=== PATIENT | female | born 1950 | race Caucasian/White ===

== ENCOUNTER 2022-02-16 07:53 | Outpatient (CLI) | payer MEDICARE, OTHER, SELFPAY | END 2022-02-16 07:54 | disposition home or self-care (01) | LOC: WOUND 07:54 | PROVIDERS: PCP Family Medicine; Visit Provider Nurse Practitioner Family | DX: L97.512 Non-pressure chronic ulcer of other part of right foot with fat layer exposed (principal) | CPT/HCPCS: 11042; 99213 ==

== ENCOUNTER 2022-02-16 08:47 | Outpatient (CLI) | payer MEDICARE, OTHER, SELFPAY ==
[2022-02-16 09:33] LABS: Basophils Absolute Auto 0.03 K/uL (0.00-0.30); Basophils Percent Auto 0.4 % (0.0-3.0); Eosinophils Absolute Auto 0.06 K/uL (0.00-0.50); Eosinophils Percent Auto 0.9 % (0.0-7.0); Hematocrit 45.3 % (33.0-51.0); Immature Granulocytes Abs Auto 0.02 K/uL (0.00-0.30); Immature Granulocytes Pct Auto 0.3 %; Lymphocytes Absolute Auto 1.85 K/uL (0.90-2.90); Lymphocytes Percent Auto 26.9 % (20-44); Mean Corpuscular HGB Conc 33 gm/dL (32-36); Mean Corpuscular Hemoglobin 30 pg (26-34); Mean Corpuscular Volume 91 fL (80-100); Monocytes Percent Auto 7.1 % (0.0-11.0); Neutrophils Absolute Auto 4.42 K/uL (1.7-7.0); Neutrophils Percent Auto 64.4 % (42.0-72.0); Platelet Count* 295 K/uL (140-440); RDW Coefficient of Variation % 12.4 % (11.5-15.5); Red Blood Count 4.99 m/uL (4.00-5.20); Slide Review Reflex No; White Blood Count* 6.87 K/uL (4.50-11.00)
[2022-02-16 10:10] LABS: Hemoglobin A1C* 5.57 % (0-5.6)
[2022-02-16 10:50] LABS: Chloride* 100 mmol/L (96-114); Sodium* 140 mmol/L (135-149)
[2022-02-16 10:52] LABS: Creatinine* 0.7 mg/dL (0.5-1.5); Estimated Glomerular Filt Rate 93 ml/min
[2022-02-16 10:53] LABS: Blood Urea Nitrogen* 15 mg/dL (7-30); Calcium* 9.8 mg/dL (8.4-10.6); Carbon Dioxide* 31 mmol/L (20-32); Glucose* 97 mg/dL (60-115)
[2022-02-17 23:47] LABS: Zinc, Serum/Plasma 79.1 ug/dL (60.0-120.0)
== END 2022-02-16 08:48 | disposition home or self-care (01) ==
PROVIDERS: PCP Family Medicine; Visit Provider Nurse Practitioner Family
DX: I10 Essential (primary) hypertension (principal); L97.519 Non-pressure chronic ulcer of other part of right foot with unspecified severity
CPT/HCPCS: 11042; 36415; 73660; 80048; 82728; 83036; 84134; 84630; 85025; 99213

== ENCOUNTER 2022-02-16 09:10 | Outpatient (CLI) | payer MEDICARE, OTHER, SELFPAY ==
--- NOTE | 2022-02-16 09:15 | CRLHL7_ITS ---
For Patients: As a result of the Cures Act, medical imaging exams and procedure reports are released immediately into your electronic medical record. You may view this report before your referring provider. If you have questions, please contact your health care provider. Indication: NON HEALING ULCER OF RIGHT FOOT Technique: Three views of the right 4th and 5th toes. Comparison: None Findings: Soft tissue swelling is present. No soft tissue gas or radiodense foreign body. No fracture. Mild degenerative changes. No periostitis or cortical destruction. Impression: No evidence of osteomyelitis. Dictated by Jose Angel Putnam MD @ 02/16/2022 12:04:41 PM (Electronically Signed)
== END 2022-02-16 09:11 | disposition home or self-care (01) ==
PROVIDERS: PCP Family Medicine; Visit Provider Nurse Practitioner Family
DX: L97.519 Non-pressure chronic ulcer of other part of right foot with unspecified severity (principal)
CPT/HCPCS: 73660; 80048; 82728; 83036; 85025

== ENCOUNTER 2022-02-23 07:58 | Outpatient (CLI) | payer MEDICARE, OTHER, SELFPAY | END 2022-02-23 07:59 | disposition home or self-care (01) | LOC: WOUND 07:58 | PROVIDERS: PCP Family Medicine; Visit Provider Nurse Practitioner Family | DX: L97.512 Non-pressure chronic ulcer of other part of right foot with fat layer exposed (principal) | CPT/HCPCS: 97602 ==

== ENCOUNTER 2022-03-02 07:51 | Outpatient (CLI) | payer MEDICARE, OTHER, SELFPAY | END 2022-03-02 07:52 | disposition home or self-care (01) | LOC: WOUND 07:51 | PROVIDERS: PCP Family Medicine; Visit Provider Physician Assistant Surgical | DX: L08.9 Local infection of the skin and subcutaneous tissue, unspecified (principal); L97.512 Non-pressure chronic ulcer of other part of right foot with fat layer exposed | CPT/HCPCS: 97597 ==

== ENCOUNTER 2022-07-23 06:01 | Day surgery (SDC) | payer MEDICARE, OTHER, SELFPAY ==
[2022-07-23] VITALS (7 sets, daily range): BP systolic 161–177; BP diastolic 79–95; PULSE 65–72; RESP 16; TEMP 36.6; O2SAT 97–100; BMI 29.2
--- NOTE | 2022-07-23 07:51 | SUR.OPER ---
PATIENT QUESTIONS ANSWERED SATISFACTORILY PREOPERATIVELY.? PATIENT BROUGHT TO OR #3 PER WHEELCHAIR.? Patient positioned supine on OR #3 bed.? The perioperative?team supported arms bilaterally on arm boards. Final approval of positioning by surgeon.? PRIOR TO LOCAL INJECTION, TIME OUT PREFORMED AT 07:51.
[2022-07-23] MEDS: lidocaine HCL 2 % MULTIDOSE 20 ML VIAL 12 ML INJECTION (07:52)
[2022-07-23] MEDS: BUPIVACAINE 0.5% 30 ML 5 ML INJECTION (07:52)
[2022-07-23] MEDS: ETHYL CHLORIDE 1 APPLICATION 1 APPLIC TOPICAL (07:52)
--- NOTE | 2022-07-23 08:10 | PM.ORPRC ---
Procedure Note Date of procedure: 07/23/22 Procedure: Preop diagnosis: Right upper extremity carpal tunnel syndrome Postop diagnosis: Right upper extremity carpal tunnel syndrome Procedure: Right upper extremity carpal tunnel release Anesthesia: Local Surgeon: Steven Dominique MD radiology practitioner assistant: JENNIFER Matos EBL: 5 mL Complications: None Specimens: None Drains: None Indications: The patient has a history of right upper extremity carpal tunnel syndrome symptoms. Despite appropriate nonoperative management consisting of nighttime bracing and occupational therapy they continue to have symptoms. Operative intervention was recommended. The risks, benefits alternatives and expected outcomes were discussed in detail. These included but were not limited to: Infection, bleeding, injury to blood vessel or nerve, venous thromboembolism. All questions were answered to their satisfaction. The patient was placed supine on the operating room table. Local anesthesia was established with 0.5% Marcaine without epinephrine and 2% lidocaine without epinephrine. The hand was prepped and draped in usual sterile fashion. The limb was elevated the forearm pneumatic tourniquet was inflated to 250 mm of mercury. A longitudinal incision was made centered over the radial border of the ring finger at the base of the palm. Subcutaneous dissection was sharply taken through the palmar fascia and the palmaris brevis to the transverse carpal ligament. The ligament was divided in line with the incision. Proximal and distal dissection was carried with tenotomy and Metzenbaum scissors for a wide decompression of the carpal tunnel. The tourniquet was released , bleeding was controlled with direct pressure. The wound was closed with a 3-0 nylon. A bulky dry dressing was applied, sponge and needle counts were correct x 2. The patient tolerated the procedure well, there were no apparent complications. They were sent to same day surgery in satisfactory condition. Plan: Use of the hand as tolerates. Discontinue the intraoperative dressing on postoperative day 3 and may get the wound wet as tolerates. Follow up in the office in 2 weeks for a wound check and suture removal.
== END 2022-07-23 08:36 | disposition home or self-care (01) ==
PROVIDERS: PCP Family Medicine; Visit Provider Orthopaedic Surgery
PROC: (CPT 64721; principal; 2022-07-23 07:45)
DX: G56.01 Carpal tunnel syndrome, right upper limb (principal)
CPT/HCPCS: 64721; J3490

== ENCOUNTER 2023-03-15 09:57 | Outpatient (CLI) | payer MEDICARE, OTHER, SELFPAY | END 2023-03-15 09:58 | disposition home or self-care (01) | PROVIDERS: PCP Family Medicine; Visit Provider Family Medicine | DX: I10 Essential (primary) hypertension (principal); R63.5 Abnormal weight gain; Z13.29 Encounter for screening for other suspected endocrine disorder | CPT/HCPCS: 80048; 84443 ==

== ENCOUNTER 2024-01-31 11:50 | Outpatient (CLI) | payer MEDICARE, OTHER, SELFPAY ==
--- NOTE | 2024-02-15 12:45 | W.PM.SLEEP ---
Sleep Study Details Details Interpreting Provider: Shelby Date of Sleep Study: 01/31/24 Sleep Study Details: STUDY TYPE:? Home unattended ? BMI:? 29.2 ORDERING PROVIDER:Olive Ryan INDICATION: Concerns about sleep apnea ? SLEEP SUMMARY:? 509.5 minutes monitored RESPIRATORY SUMMARY:? AHI 12.1 per CMS guideline, 14.6 per rule 1A Low oxygen 70 4.9% of study oxygen less than 90% Snoring 93.8% PERIODIC LIMB MOVEMENTS OF SLEEP:? Not recorded CARDIAC:? Range 58-112, mean 74.5 beats per minute IMPRESSION:? Mild obstructive sleep apnea with significant hypo oxygenation. 25 minutes of the study oxygen less than 90% RECOMMENDATION: Treatment options would include CPAP versus dental appliance.
== END 2024-01-31 11:51 | disposition home or self-care (01) ==
PROVIDERS: PCP Family Medicine; Visit Provider Otolaryngology
DX: G47.33 Obstructive sleep apnea (adult) (pediatric) (principal)
CPT/HCPCS: 95806

== ENCOUNTER 2024-05-08 09:55 | Outpatient (CLI) | payer MEDICARE, OTHER, SELFPAY | END 2024-05-08 09:56 | disposition home or self-care (01) | PROVIDERS: PCP Family Medicine; Visit Provider Family Medicine | DX: I10 Essential (primary) hypertension (principal); Z13.6 Encounter for screening for cardiovascular disorders; Z13.21 Encounter for screening for nutritional disorder; Z13.0 Encounter for screening for diseases of the blood and blood-forming organs and certain disorders involving the immune mechanism | CPT/HCPCS: 80048; 80061; 82607 ==